=== PATIENT | male | born 1990 | race African-American/Black ===

== ENCOUNTER 2016-10-07 21:59 | Emergency (ER) | payer SELFPAY ==
[2016-10-07 22:37] VITALS: BP 113/58; PULSE 92; TEMP 98.2; BMI 26.2
--- NOTE | 2016-10-07 23:00 | PDOC ---
History of Present Illness <Diego Block - Last Filed: 10/07/16 23:44> - History of Present Illness Initial Comments: 10/08/16 00:17 Patient is a 26 year old male with significant medical hx of asthma who is presenting to the ED with itchiness to his back for one day. Patient complains of itchiness to his back and left side. He is vocalizing concern for ringworm since he is accompanied by family member who was recently diagnosed and treated for ringworm. Denies fevers. <Bárbara Mcrae - Last Filed: 10/08/16 00:18> - General Chief Complaint: Rash Stated Complaint: EXPOSED TO RINGWORM Time Seen by Provider: 10/07/16 22:45 Past History - Past Medical History Other medical history: Pt denies - Psycho/Social/Smoking Cessation Hx Anxiety: No Suicidal Ideation: No Smoking History: Never smoked Information on smoking cessation initiated: No Hx Alcohol Use: No Drug/Substance Use Hx: No Substance Use Type: None <Diego Block - Last Filed: 10/07/16 23:44> <Bárbara Mcrae - Last Filed: 10/08/16 00:18> - Past Medical History Allergies/Adverse Reactions: Allergies Allergy/AdvReac Type Severity Reaction Status Date / Time No Known Allergies Allergy Verified 10/07/16 22:34 Home Medications: Ambulatory Orders Famotidine [Pepcid] 20 mg PO BID #14 tablet 12/15/14 Ondansetron HCl [Zofran] 4 mg PO Q6H #12 tablet 12/15/14 Review of Systems - Review of Systems Comments:: 10/08/16 00:17 CONSTITUTIONAL: No reported: Fever, Chills, SKIN: Reported: Itching No reported: Rash, Itching, Pallor <Bárbara Mcrae - Last Filed: 10/08/16 00:18> *Physical Exam - Vital Signs Last Vital Signs Temp Pulse Resp BP Pulse Ox 98.2 F 92 H 19 113/58 97 10/07/16 22:34 10/07/16 22:34 10/07/16 22:34 10/07/16 22:34 10/07/16 22:34 <Diego Block - Last Filed: 10/07/16 23:44> - Vital Signs Last Vital Signs Temp Pulse Resp BP Pulse Ox 98.2 F 92 H 19 113/58 97 10/07/16 22:34 10/07/16 22:34 10/07/16 22:34 10/07/16 22:34 10/07/16 22:34 - Physical Exam Comments: 10/08/16 00:18 GENERAL: The patient is awake, alert, and fully oriented, Nontoxic - in no acute distress. SKIN: Warm, Dry, normal turgor, No rashes present <Bárbara Mcrae - Last Filed: 10/08/16 00:18> Medical Decision Making - Medical Decision Making 10/07/16 23:42 23y M hx of asthma presents with ringworm exposure son has ringwomr to the face pt with itching to his back without signs of ringworm rash will have pt maintain clenlieness and hygeine if rash, pmd fu for treatment A portion of this note was documented by scribe services under my direction. I have reviewed the details of the note, within reason, and agree with the documentation with the following case summary and management plan written by me I discussed the physical exam findings, ancillary test results and final diagnoses with the patient. I answered all of the patient's questions. The patient was satisfied with the care received and felt comfortable with the discharge plan and treatment plan. The patient will call their primary care physician within 24 hours to arrange follow-up and will return to the Emergency Department with any new, persistent or worsening symptoms. <Diego Block - Last Filed: 10/07/16 23:44> *DC/Admit/Observation/Transfer - Discharge Dispostion Admit: No <Diego Block - Last Filed: 10/07/16 23:44> - Attestations Scribe Attestion: 10/08/16 00:18 Documentation prepared by Bárbara Mcrae, acting as medical numerical control operator for Diego Block MD. <Bárbara Mcrae - Last Filed: 10/08/16 00:18> Diagnosis at time of Disposition: Itching - Discharge Dispostion Disposition: HOME Condition at time of disposition: Improved - Referrals Referrals: Luis Eduardo Dos Santos MD [Primary Care Provider] - - Patient Instructions Printed Discharge Instructions: DI for Itching Additional Instructions: There does not appear to be a ringworm rash. Please keep an eye on the area, if there is a rash you should be treated. Avoid touching infected areas of your son.
== END 2016-10-08 00:20 | disposition home or self-care (01) ==
LOC: JER 21:59
DX: L29.9 Pruritus, unspecified (principal)
CPT/HCPCS: 99281-25